=== PATIENT | male | born 1940 | race Caucasian/White ===

== ENCOUNTER 2016-03-23 22:19 | Observation (INO) | payer MEDICARE, OTHER ==
[~2016-03-23] VITALS: Ht 182.9 cm; Wt 82.0 kg
[~2016-03-23 22:19] MED LIST: CODCAP9 PO; LEVO100T4 PO; LOVA20TA PO; TAB-TAB PO
[2016-03-23 22:23] VITALS: BP 114/56; PULSE 82; RESP 16; O2SAT 93
[2016-03-23 22:29] VITALS: TEMP 97.8
[2016-03-23] MEDS ORDERED: NITROGLYCERIN 2% OINT 1 GM PACKET TOP ONE (22:30)
[2016-03-23] MEDS ORDERED: SODIUM CHLORIDE 0.9% FLUSH 5 ML FLUSH IVF PRN (22:30)
[2016-03-23] MEDS ORDERED: ASPIRIN 81 MG CHEW TAB PO ONE (22:30)
[2016-03-23] MEDS ORDERED: NITROGLYCERIN 0.4 MG SL 25 TABS/BTL SL ONE (22:30)
[2016-03-23] MEDS ORDERED: SODIUM CHLORID 0.9% 500 ML INJ 500 ML IV ONE (22:30)
[2016-03-23 22:38] VITALS: BP 176/82
[2016-03-23 22:42] LABS: AUTOMATED NEUTROPHIL # 10.2 TH/MM3 (1.8-7.7); BASOPHIL % 0.3 % (0.0-2.0); EOSINOPHIL # 0.2 TH/MM3 (0-0.4); EOSINOPHIL % 1.8 % (0.0-4.0); HEMATOCRIT 34.3 % (39.0-51.0); HEMO FLAGS DIFF FINAL; LYMPH % 7.4 % (9.0-44.0); LYMPHOCYTE # 0.9 TH/MM3 (1.0-4.8); MEAN CORPUSCULAR HEMOGLOBIN 30.2 PG (27.0-34.0); MEAN CORPUSCULAR HGB CONC 34.3 % (32.0-36.0); MONO % 5.9 % (0.0-8.0); NEUT % 84.6 % (16.0-70.0); PLATELET COUNT 202 TH/MM3 (150-450); RED CELL DISTRIBUTION WIDTH 12.3 % (11.6-17.2); WHITE BLOOD COUNT 12.1 TH/MM3 (4.0-11.0)
[2016-03-23 22:53] LABS: APTT (PATIENT) 25.6 SEC (24.3-30.1); PROTHROMBIN TIME - PATIENT 10.6 SEC (9.8-11.6)
--- NOTE | 2016-03-23 22:53 | RADRPT ---
EXAM DATE/TIME: 03/23/2016 22:49 [facility] COMPARISON: No previous studies available for comparison. INDICATIONS : Chest pain MEDICAL HISTORY : None. SURGICAL HISTORY : None. ENCOUNTER: Initial ACUITY: 1 day PAIN SCORE: 5/10 LOCATION: Bilateral chest FINDINGS: PA and lateral views of the chest demonstrate subsegmental basal air space disease. Heart size mildly enlarged. No significant effusion. No pneumothorax. No acute bony abnormality. CONCLUSION: 1. Subsegmental basilar airspace disease. Mild cardiomegaly. Shane Altamirano MD on March 23, 2016 at 22:50 Board Certified Radiologist. This report was verified electronically.
[2016-03-23 22:58] VITALS: PULSE 82
[2016-03-23 22:59] VITALS: BP 81/51; PULSE 84; RESP 16; O2SAT 93
[2016-03-23 23:10] VITALS: BP 85/50; PULSE 82; RESP 16; O2SAT 94
[2016-03-23 23:18] LABS: ALT (GPT) 22 U/L (12-78); ANION GAP 8 MEQ/L (5-15); AST (GOT) 20 U/L (15-37); BICARBONATE 28.5 MEQ/L (21.0-32.0); BLOOD UREA NITROGEN 18 MG/DL (7-18); CHLORIDE 104 MEQ/L (98-107); GLOMERULAR FILTRATION RATE 69 ML/MIN (>89); MAGNESIUM 1.8 MG/DL (1.5-2.5); POTASSIUM 3.4 MEQ/L (3.5-5.1); SODIUM (NA) 140 MEQ/L (136-145)
[2016-03-23 23:22] LABS: ALKALINE PHOSPHATASE 57 U/L (45-117); TOTAL BILIRUBIN ADULT 0.3 MG/DL (0.2-1.0)
--- NOTE | 2016-03-23 23:49 | PD ---
HPI Chief Complaint: Chest Pain Time Seen by Provider: 22:28 Travel History International Travel<30 days: No Contact w/Intl Traveler<30days: No Traveled to known affect area: No History of Present Illness HPI This is a 75-year-old man who presents to the emergency department complaining of left-sided chest tightness that started about 2 hours prior to arrival. He' s never really had it before. His a history of hyperlipidemia but no history of heart disease. He describes pretty significant discomfort coming on this evening. No shortness of breath but the pain is somewhat pleuritic. He's had about 2 months worth of runny nose and cough but no real recent exacerbations or other URI symptoms. No shortness of breath. No leg swelling. He otherwise been very healthy. He did an hour and a half of cardio at the gym today without any difficulty or discomfort. He states he has had symptoms of intermittent difficulty swallowing or feeling like food gets stuck in his throat if it's dry. He's never really had this evaluated. No other complaints. No previous workup for cardiac disease. History Past Medical History Narrative Medical Hyperlipidemia Social History Alcohol Use: Yes (2 VODKA DRINKS PER NIGHT ) Tobacco Use: No Allergies-Medications (Allergen,Severity, Reaction): Coded Allergies: Sulfa (Verified Allergy, Unknown, UNKNOWN, 03/23/16) Reported Meds & Prescriptions Reported Meds & Active Scripts Active Reported Cod Liver Oil 1000 mg (Cod Liver Oil) 1 Cap Cap 1 Cap PO DAILY Multivitamin (Multivitamins) 1 Tab Tab 1 Tab PO DAILY Levothyroxine Sodium (Generic) (Levothyroxine Sodium) 100 Mcg Tab 100 Mcg PO DAILY Lovastatin 20 Mg Tab 20 Mg PO HS Review of Systems Except as stated in HPI: all other systems reviewed are Neg Physical Exam Narrative GENERAL: Well-appearing 74-year-old man, no acute distress. SKIN: Warm and dry. HEAD: Atraumatic. Normocephalic. EYES: Pupils equal and round. No scleral icterus. No injection or drainage. ENT: No nasal bleeding or discharge. Mucous membranes pink and moist. NECK: Trachea midline. No JVD. CARDIOVASCULAR: Regular rate and rhythm. No murmur appreciated. RESPIRATORY: No accessory muscle use. Clear to auscultation. Breath sounds equal bilaterally. GASTROINTESTINAL: Abdomen soft, non-tender, nondistended. Hepatic and splenic margins not palpable. MUSCULOSKELETAL: No obvious deformities. No clubbing. No cyanosis. No edema. NEUROLOGICAL: Awake and alert. No obvious cranial nerve deficits. Motor grossly within normal limits. Normal speech. PSYCHIATRIC: Appropriate mood and affect; insight and judgment normal. Data Data Last Documented VS Vital Signs Date Time Temp Pulse Resp B/P Pulse Ox O2 Delivery O2 Flow Rate FiO2 03/23/16 23:10 82 16 85/50 94 Nasal Cannula 2 03/23/16 22:29 97.8 Orders Electrocardiogram (03/23/16 22:28) Complete Blood Count With Diff (03/23/16 22:28) Comprehensive Metabolic Panel (03/23/16 22:28) D-Dimer (03/23/16 22:28) Magnesium (Mg) (03/23/16 22:28) Prothrombin Time / Inr (Pt) (03/23/16 22:28) Act Partial Throm Time (Ptt) (03/23/16 22:28) Troponin I (03/23/16 22:28) Ecg Monitoring (03/23/16 22:28) Bilateral Bp Monitoring (03/23/16 22:28) Iv Access Insert/Monitor (03/23/16 22:28) Oximetry (03/23/16 22:28) Oxygen Administration (03/23/16 22:28) Aspirin Chew (Aspirin Chew) (03/23/16 22:30) Nitroglycerin 2% Oint (Nitroglycerin 2% (03/23/16 22:30) Sodium Chloride 0.9% Flush (Ns Flush) (03/23/16 22:30) Nitroglycerin Sl (Nitrostat Sl) (03/23/16 22:30) Sodium Chlorid 0.9% 500 Ml Inj (Ns 500 M (03/23/16 22:30) Chest, Pa & Lat (03/23/16 22:28) Lipase (03/23/16 23:31) Admit Order (Ed Use Only) (03/23/16 ) Labs Laboratory Tests Test 03/23/16 22:33 White Blood Count 12.1 TH/MM3 Red Blood Count 3.90 MIL/MM3 Hemoglobin 11.8 GM/DL Hematocrit 34.3 % Mean Corpuscular Volume 88.0 FL Mean Corpuscular Hemoglobin 30.2 PG Mean Corpuscular Hemoglobin 34.3 % Concent Red Cell Distribution Width 12.3 % Platelet Count 202 TH/MM3 Mean Platelet Volume 7.9 FL Neutrophils (%) (Auto) 84.6 % Lymphocytes (%) (Auto) 7.4 % Monocytes (%) (Auto) 5.9 % Eosinophils (%) (Auto) 1.8 % Basophils (%) (Auto) 0.3 % Neutrophils # (Auto) 10.2 TH/MM3 Lymphocytes # (Auto) 0.9 TH/MM3 Monocytes # (Auto) 0.7 TH/MM3 Eosinophils # (Auto) 0.2 TH/MM3 Basophils # (Auto) 0.0 TH/MM3 CBC Comment DIFF FINAL Differential Comment Prothrombin Time 10.6 SEC Prothromb Time International 1.0 RATIO Ratio Activated Partial 25.6 SEC Thromboplast Time D-Dimer Quantitative (PE/DVT) 0.46 MG/L FEU Sodium Level 140 MEQ/L Potassium Level 3.4 MEQ/L Chloride Level 104 MEQ/L Carbon Dioxide Level 28.5 MEQ/L Anion Gap 8 MEQ/L Blood Urea Nitrogen 18 MG/DL Creatinine 1.05 MG/DL Estimat Glomerular Filtration 69 ML/MIN Rate Random Glucose 121 MG/DL Calcium Level 8.3 MG/DL Magnesium Level 1.8 MG/DL Total Bilirubin 0.3 MG/DL Aspartate Amino Transf 20 U/L (AST/SGOT) Alanine Aminotransferase 22 U/L (ALT/SGPT) Alkaline Phosphatase 57 U/L Troponin I LESS THAN 0.02 NG/ML Total Protein 6.5 GM/DL Albumin 3.3 GM/DL [facility] Medical Decision Making Medical Screen Exam Complete: Yes Emergency Medical Condition: Yes Interpretation(s) My review of EKG: Normal sinus rhythm at a rate of 82, leftward axis, normal intervals, no definite evidence of acute ischemia. LABS: CBC remarkable for mild leukocytosis, mild anemia. CMP is unremarkable Troponin negative D-dimer 0.46 chest x-ray: Subsegmental basilar airspace disease. Mild cardiomegaly. Coags unremarkable Chest x-ray: Bibasilar airspace disease. Mild cardiomegaly. Differential Diagnosis Esophageal spasm, ACS, PE, pneumonia, other Narrative Course Medical decision making 75-year-old man, chest tightness starting abruptly this evening. He's had a two -month prodrome of some cough cold symptoms. There is no real other convincing evidence of pneumonia clinically. He does have some bibasilar airspace disease. He has a history of swallowing difficulties and I think the symptoms are likely related to esophageal spasm. EKG is nondiagnostic. No other prodrome for ACS. Labs lipase onto his initial labs, admission to the chest pain Center for serial cardiac enzymes and provocative testing, outpatient follow-up with GI if symptoms persist. Diagnosis Primary Impression: Chest pain Qualified Code: R07.9 - Chest pain, unspecified type Rashad Pierre MD Mar 23, 2016 23:49
[2016-03-24] VITALS (8 sets, daily range): BP systolic 108–154; BP diastolic 59–72; PULSE 80–88; RESP 15–19; TEMP 99.9–100; O2SAT 92–97
[2016-03-24] MEDS ORDERED: SODIUM CHLORIDE 0.9% FLUSH 5 ML FLUSH IVF PRN (00:45)
[2016-03-24] MEDS ORDERED: ACETAMINOPHEN/HYDROcodone 325 MG/5 MG TAB PO ONE (00:45)
[2016-03-24 02:05] LABS: CREATINE KINASE 166 U/L (39-308)
[2016-03-24 02:17] LABS: CKMB 2.3 NG/ML (0.5-3.6)
[2016-03-24 05:20] LABS: CREATINE KINASE 186 U/L (39-308)
[2016-03-24 05:32] LABS: CKMB 3.3 NG/ML (0.5-3.6)
[2016-03-24] MEDS ORDERED: LOVA20TA PO (07:37)
[2016-03-24] MEDS ORDERED: LEVO100T5 PO (07:37)
[2016-03-24] MEDS ORDERED: MULT-135 PO (07:37)
[2016-03-24] MEDS ORDERED: CODCAP (07:37)
[2016-03-24] MEDS ORDERED: ONDANSETRON HCL 4 MG/2 ML VIAL IV PRN (07:45)
[2016-03-24] MEDS ORDERED: ACETAMINOPHEN 500 MG CPLT PO PRN (07:45)
[2016-03-24] MEDS ORDERED: NITROGLYCERIN 0.4 MG SL 25 TABS/BTL SL PRN (07:45)
[2016-03-24] MEDS ORDERED: POTASSIUM CHLORIDE 20 MEQ CONTROLLED RELEASE TAB PO ONE (08:30)
[2016-03-24] MEDS ORDERED: KETOROLAC TROMETHAMINE 30 MG/ML (IVP) VIAL IV PUSH ONE (08:30)
[2016-03-24] MEDS ORDERED: POTASSIUM CL 40 MEQ/30 ML LIQ UDC PO ONE (08:45)
[2016-03-24] MEDS ORDERED: SODIUM CHLORIDE 0.9% FLUSH 5 ML FLUSH IVF SCH (09:00)
--- NOTE | 2016-03-24 10:04 | HHI.HP ---
HPI Primary Care Physician Koko Perry MD Chief Complaint Chest pain History of Present Illness This 75-year-old patient with known hypertension and hypothyroidism presents to the emergency room for further evaluation of substernal chest discomfort, onset 9 PM last evening. Characterized as a gradual pressure, with occasional sharp pains. Severity as 7 out of 10, duration has been constant, there was no radiation of his chest discomfort. Associated symptoms states he cannot take a deep breath,hurts to take a deep breath and also hurts with certain movements. No nausea, vomiting, diaphoresis, or shortness of breath. No known relieving factors. Received a pain pill in the emergency room that helped "slightly." Precipitating factors worked out at a gym Sunday lifting heavier weights than normal. Feels he pushed himself too much, wonders if this could have caused his discomfort. He routinely works out on a regular basis. Denies any epigastric burning, discomfort, or known acid reflux. Review of Systems General: No fatigue,weakness, fever, chills, or recent illness change in appetite, or recent travel HEENT: Past 2 months has had a runny nose and sneezing daily. Denies sore throat or having allergies. Believes he keeps a "cold" because he works out at the gym on a regular basis and they are "lots of germs there,." No MONK, no vision changes, no nasal congestion or drainage. Chronic dysphasia, follows with ENT, denies ever having esophageal stretching in fact states his ENT M.D. states he no longer needs to follow with him although patient follows with him yearly. Past right side focal nodule non-cancerous. CV: As stated above. Denies CP or pressure while working out at the gym 4 days a week. No palpitations, intermittent leg pain, or dizziness RESP: Hurts to take a deep breath therefore he states he has been taking shallow breaths. No SOB, cough, wheeze, hemoptysis GI: No nausea or vomiting, bowel changes, diarrhea, constipation, pain, distention, melena, blood in the stool. No change in appetite, no unintentional weight gain or weight loss : No dysuria, urgency, frequency EXT: No lower leg edema, no parathesias MS: Reports mild chest discomfort with movement from bed to standing position not necessarily twitching. Deep breaths make chest discomfort worse. Worked out Sunday with weights. Believes "I may have over done it." No change in ROM. No known trauma. 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, noncancerous Left ankle fracture as a child Reported Medications Reported Multi Vitamin (Multiple Vitamin) 1 Tab Tab 1 Tab PO DAILY Cod Liver Oil 1 Cap 1,250 Lovastatin 20 Mg Tab 20 Mg PO HS Levothyroxine (Levothyroxine Sodium) 100 Mcg Tab 100 Mcg PO DAILY Osteal porosis pill weekly, he is unsure of drug name Losartan (dose unknown) daily Vitamin B12 daily Calcium tablet BID (dose unknown) Active Ordered Medications Current Medications Medications (Trade) Dose Ordered Sig/Mj Route Start Time Stop Time Status Last Admin (Tylenol) 500 mg Q4H PRN PO 03/24/16 07:45 (Zofran Inj) 4 mg Q6H PRN IV 03/24/16 07:45 (Nitrostat Sl) 0.4 mg Q5M PRN SL 03/24/16 07:45 Family History Noncontributory for any early onset cardiovascular disease. Father at age 67 from coronary artery disease. Social History Has a remote smoking history smoked for 2 years only, quit 37 years ago. Endorses drinking 2 vodka drinks nightly denies any illegal drug use. No known hypertension or diabetes. Reports hyperlipidemia. He works out on the gym 4 days a week 2 days he uses elliptical for 45 minutes followed by 45 minutes on the treadmill at a pace of 3-1/2 miles per hour on an incline he does not develop chest discomfort with these exercises. Other 2 days a week he lifts weights. Reports having exercise stress test many years ago was unremarkable he does not follow with a beach expert. Physical Exam Vital Signs Vital Signs Date Time Temp Pulse Resp B/P Pulse Ox O2 Delivery O2 Flow Rate FiO2 03/24/16 09:20 87 03/24/16 08:53 93 Nasal Cannula 2.00 03/24/16 07:47 99.9 88 19 154/72 94 03/24/16 05:00 85 03/24/16 05:00 85 03/24/16 04:00 100.0 86 17 121/60 92 03/24/16 00:50 97 Nasal Cannula 1.00 03/24/16 00:35 88 16 126/68 96 Nasal Cannula 2 03/24/16 00:03 80 15 108/59 96 Nasal Cannula 2 03/23/16 23:10 82 16 85/50 94 Nasal Cannula 2 03/23/16 22:59 84 16 81/51 93 Nasal Cannula 2 03/23/16 22:58 82 03/23/16 22:29 97.8 03/23/16 22:23 82 16 114/56 93 Room Air Physical Exam GENERAL: Alert WN, WD, NAD, pleasant male HEAD: NC, AT EYES: Sclera clear, conjunctiva without injection, pupils equal and round ENT: Mucous membranes pink and moist, no nasal discharge or bleeding NECK: Supple, no masses, trachea midline CV: RRR, 2/6 systolic murmur, no rub, gallop, no JVD, S1-S2 no S3-S4. No carotid or femoral bruits. RESP: Clear lungs throughout bilateral, no crackles, wheeze, rhonchi. Symmetrical chest rise, nonlabored, able to speak in full sentences ABD: Soft, NT, ND, no masses, positive bowel tones BACK: No CVAT, no scoliosis EXT: Pulses +24, no dependent edema MS: Normal tone 4 extremities, slightly tender on the right chest wall with palpation. No obvious deformities, full range of motion NEURO: CN II through CN XII grossly intact, motor strength 5/5, gait WNL PSYCH: A+O 3, pleasant affect, appropriate speech, appropriate mood and affect , insight and judgment SKIN: Normal turgor, normal texture, no lesions, no rashes, brisk cap refill Laboratory Laboratory Tests Test 03/23/16 03/24/16 03/24/16 22:33 01:30 04:28 White Blood Count 12.1 Red Blood Count 3.90 Hemoglobin 11.8 Hematocrit 34.3 Mean Corpuscular Volume 88.0 Mean Corpuscular Hemoglobin 30.2 Mean Corpuscular Hemoglobin 34.3 Concent Red Cell Distribution Width 12.3 Platelet Count 202 Mean Platelet Volume 7.9 Neutrophils (%) (Auto) 84.6 Lymphocytes (%) (Auto) 7.4 Monocytes (%) (Auto) 5.9 Eosinophils (%) (Auto) 1.8 Basophils (%) (Auto) 0.3 Neutrophils # (Auto) 10.2 Lymphocytes # (Auto) 0.9 Monocytes # (Auto) 0.7 Eosinophils # (Auto) 0.2 Basophils # (Auto) 0.0 CBC Comment DIFF FINAL Differential Comment Prothrombin Time 10.6 Prothromb Time International 1.0 Ratio Activated Partial 25.6 Thromboplast Time D-Dimer Quantitative (PE/DVT) 0.46 Sodium Level 140 Potassium Level 3.4 Chloride Level 104 Carbon Dioxide Level 28.5 Anion Gap 8 Blood Urea Nitrogen 18 Creatinine 1.05 Estimat Glomerular Filtration 69 Rate Random Glucose 121 Calcium Level 8.3 Magnesium Level 1.8 Total Bilirubin 0.3 Aspartate Amino Transf 20 (AST/SGOT) Alanine Aminotransferase 22 (ALT/SGPT) Alkaline Phosphatase 57 Troponin I LESS THAN 0.02 LESS THAN 0.02 LESS THAN 0.02 Total Protein 6.5 Albumin 3.3 Lipase 194 Total Creatine Kinase 166 186 Creatine Kinase MB 2.3 3.3 Result Diagram: 03/23/16223203/23/162232 Imaging Last Impressions Chest X-Ray 03/23/162227 Signed Impressions: Service Date/Time: March 22:49 - CONCLUSION: 1. Subsegmental basilar airspace disease. Mild cardiomegaly. Shane Altamirano MD Course EKGsnormal sinus rhythm, left axis deviation, and incomplete right bundle branch block. Assessment and Plan Assessment and Plan #1 chest painpatient has been admitted to the chest pain center was ruled out with 3 sets of EKGs, 3 cardiac enzymes, and was monitored overnight. He'll be seen and evaluated by Dr. Chad Gutierres. Discussed the likelihood of having a exercise stress test however as his chest discomfort is more musculoskeletal beach expert will make determination. #2 Musculoskeletal painToradol 30 mg IV 1 dose. #3 Anemiapatient's encouraged to follow with his primary care provider as he is mildly anemic. #4 Dysphasia-chronic, stable. He has been encouraged to keep ENT appointment next week. #5 Mild Leukocytosisdiscussed with patient to follow-up with his primary care provider at this time there is no clear indication as to why he has leukocytosis. Patient has an appointment within the next couple of weeks with his primary care provider. Instructed to make sooner appointment as he has had a low-grade fever while in the hospital. He should verbalizes understanding. Guerline Wiseman Mar 24, 2016 10:04
[2016-03-24] MEDS ORDERED: LEVOTHYROXINE SODIUM 100 MCG TAB PO SCH (11:30)
--- NOTE | 2016-03-24 12:00 | HHI.DCPOC ---
Discharge Care Plan Diagnosis: (1) Musculoskeletal chest pain Goals to Promote Your Health * To prevent worsening of your condition and complications * To maintain your health at the optimal level Directions to Meet Your Goals Take your medications as prescribed Follow your dietary instruction Follow activity as directed Keep your appointments as scheduled Take your immunizations and boosters as scheduled If your symptoms worsen call your PCP, if no PCP go to Urgent Care Center or Emergency Room Smoking is Dangerous to Your Health. Avoid second hand smoke Call the 24-hour hour crisis hotline for domestic abuse at Guerline Wiseman Mar 24, 2016 12:00
--- NOTE | 2016-03-24 16:53 | EKG ---
Date Performed: 03/24/2016 Time Performed: 04:43:24 PTAGE: 75 years EKG: Sinus rhythm BORDERLINE LEFT AXIS DEVIATION INCOMPLETE RIGHT BUNDLE BRANCH BLOCK BORDERLINE ECG PREVIOUS TRACING : 03/24/2016 01.25 Since previous tracing, no significant change noted DOCTOR: Chad Gutierres Interpretating Date/Time 03/24/2016 16:52:29
--- NOTE | 2016-03-24 16:56 | EKG ---
Date Performed: 03/24/2016 Time Performed: 01:25:11 PTAGE: 75 years EKG: Sinus rhythm BORDERLINE LEFT AXIS DEVIATION MODERATE INTRAVENTRICULAR CONDUCTION DELAY BORDERLINE ECG PREVIOUS TRACING : 03/23/2016 22.29 Since previous tracing, no significant change noted DOCTOR: Chad Gutierres Interpretating Date/Time 03/24/2016 16:55:07
--- NOTE | 2016-03-24 16:58 | EKG ---
Date Performed: 03/23/2016 Time Performed: 22:29:55 PTAGE: 75 years EKG: Sinus rhythm BORDERLINE LEFT AXIS DEVIATION MODERATE INTRAVENTRICULAR CONDUCTION DELAY BORDERLINE ECG PREVIOUS TRACING : 07/22/2013 08.22 Since previous tracing, no significant change noted DOCTOR: Chad Gutierres Interpretating Date/Time 03/24/2016 16:57:14
[2016-03-25] MEDS ORDERED: MULTIVITAMIN TAB PO SCH (09:00)
== END 2016-03-24 14:59 | disposition home or self-care (01) ==
LOC: NEPC 22:19 → NEDA 23:34 → NEPHCDU 03-24 02:06
DX: R07.9 Chest pain, unspecified (principal); E78.5 Hyperlipidemia, unspecified; R05 Cough; R09.89 Other specified symptoms and signs involving the circulatory and respiratory systems; R13.10 Dysphagia, unspecified; Z79.899 Other long term (current) drug therapy; I11.9 Hypertensive heart disease without heart failure; E03.9 Hypothyroidism, unspecified; R47.02 Dysphasia; M79.1 Myalgia; D64.9 Anemia, unspecified; D72.829 Elevated white blood cell count, unspecified; I45.10 Unspecified right bundle-branch block
CPT/HCPCS: 71020; 80053; 82550; 82552; 83690; 83735; 84484; 85025; 85379; 85610; 85730; 93005; 96360; 99285; G0378; J1885; J7040

== ENCOUNTER 2016-11-12 14:11 | Emergency (ER) | payer OTHER ==
[~2016-11-12 14:11] MED LIST changes: +CODCAP; -CODCAP9 PO; -LEVO100T4 PO; +LEVO100T5 PO; +MULT-135 PO; -TAB-TAB PO
[2016-11-12 14:14] VITALS: BP 179/85; PULSE 92; RESP 16; TEMP 98.4; O2SAT 99
--- NOTE | 2016-11-12 15:55 | RADRPT ---
EXAM DATE/TIME: 11/12/2016 15:36 [facility] COMPARISON: No previous studies available for comparison. INDICATIONS : Difficulty swallowing. MEDICAL HISTORY : Carcinoma, esophageal. SURGICAL HISTORY : None. ENCOUNTER: Initial ACUITY: 1 day PAIN SCORE: 3/10 LOCATION: Esophagus. FINDINGS: Two view examination of the soft tissues of the neck demonstrates the hypopharyngeal airway to have a grossly normal configuration. The trachea is midline. No radiopaque foreign bodies are seen. CONCLUSION: Normal examination. Rashad Leon MD on November 12, 2016 at 15:53 Board Certified Radiologist. This report was verified electronically.
[2016-11-12] MEDS ORDERED: ALEN1TAB48 PO (16:14)
[2016-11-12] MEDS ORDERED: LOSA50TA PO (16:15)
[2016-11-12] MEDS ORDERED: LIDOCAINE VISCOUS 2% SOLN 15 ML UDC SWISH-SPIT STA (16:19)
[2016-11-12 16:22] LABS: BLOOD, URINE TRACE (NEG); GLUCOSE,URINE NEG (NEG); KETONE, URINE 10 mg/dL (NEG); MUCUS URINE FEW /lpf (OCC); NITRITE,URINE NEG (NEG); URINE COLOR YELLOW (YELLW/STRAW)
[2016-11-12 16:30] LABS: COMMENT (UR) CULT NOT INDICATED; CULTURE IF INDICATED CULT NOT INDICATED
[2016-11-12 16:33] LABS: AUTOMATED NEUTROPHIL # 6.9 TH/MM3 (1.8-7.7); BASOPHIL # 0.1 TH/MM3 (0-0.2); BASOPHIL % 0.6 % (0.0-2.0); EOSINOPHIL # 0.1 TH/MM3 (0-0.4); EOSINOPHIL % 1.6 % (0.0-4.0); HEMATOCRIT 41.5 % (39.0-51.0); HEMO FLAGS DIFF FINAL; LYMPH % 12.2 % (9.0-44.0); LYMPHOCYTE # 1.1 TH/MM3 (1.0-4.8); MEAN CORPUSCULAR HEMOGLOBIN 29.2 PG (27.0-34.0); MEAN CORPUSCULAR HGB CONC 34.4 % (32.0-36.0); MONO % 6.7 % (0.0-8.0); NEUT % 78.9 % (16.0-70.0); PLATELET COUNT 199 TH/MM3 (150-450); RED BLOOD COUNT 4.88 MIL/MM3 (4.50-5.90); RED CELL DISTRIBUTION WIDTH 15.8 % (11.6-17.2); WHITE BLOOD COUNT 8.7 TH/MM3 (4.0-11.0)
--- NOTE | 2016-11-12 16:37 | PD ---
HPI . Sensation of food lodged in throat Chief Complaint: ENT Complaint Time Seen by Provider: 16:35 Travel History International Travel<30 days: No Contact w/Intl Traveler<30days: No Traveled to known affect area: No History of Present Illness HPI 75-year-old male patient presents emergency department for evaluation of the sensation of food being lodged in his throat. Patient states he was eating chicken and dumplings last night when the sensation occurred. 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 He typically resolve the problem by drinking plenty of water however the problem is persistent this time. Patient states this happened a couple years ago and he came to the emergency department and was given a medication that relaxed his esophagus and the food passed. Patient states it's difficult to drink fluids or eat food with the sensation of esophageal blockage. Patient denies any chest pain, shortness breath, nausea, vomiting, diarrhea, abdominal pain, hematuria, dysuria, fevers, chills, malaise or lightheadedness. PFSH Past Medical History Arthritis: Yes Cancer: Yes (VOCAL CORD) Cardiovascular Problems: No Diabetes: No Diminished Hearing: No Endocrine: No Genitourinary: No Hepatitis: No Hiatal Hernia: No Hypertension: Yes Immune Disorder: No Musculoskeletal: Yes (ARTHRITIS) Neurologic: No Psychiatric: No Reproductive: No Respiratory: No Radiation Therapy: Yes (2010) Thyroid Disease: Yes Tetanus Vaccination: > 5 Years Influenza Vaccination: Yes Past Surgical History Abdominal Surgery: Yes (hernia repair) Joint Replacement: No Oral Surgery: Yes (VOCAL CORDS) Pacemaker: No Other Surgery: Yes (colonoscopy) Social History Alcohol Use: Yes (2 VODKA DRINKS PER NIGHT ) Tobacco Use: No Substance Use: No Allergies-Medications (Allergen,Severity, Reaction): Coded Allergies: Sulfa (Sulfonamide Antibiotics) (Unverified Allergy, Unknown, UNKNOWN, 11/12/16) Reported Meds & Prescriptions Reported Meds & Active Scripts Active Reported Losartan (Losartan Potassium) 50 Mg Tab 50 Mg PO DAILY Alendronate (Alendronate Sodium) 70 Mg Tab 70 Mg PO Q7D Lovastatin 20 Mg Tab 20 Mg PO HS Levothyroxine (Levothyroxine Sodium) 100 Mcg Tab 100 Mcg PO DAILY Review of Systems Except as stated in HPI: all other systems reviewed are Neg Physical Exam Narrative GENERAL: Well-nourished, well-developed 75-year-old male patient in no acute distress SKIN: Focused skin assessment warm/dry. HEAD: Normocephalic. Atraumatic. EYES: No scleral icterus. No injection or drainage. NECK: Supple, trachea midline. No JVD or lymphadenopathy. CARDIOVASCULAR: Regular rate and rhythm without murmurs, gallops, or rubs. RESPIRATORY: Breath sounds equal bilaterally. No accessory muscle use. GASTROINTESTINAL: Abdomen soft, non-tender, nondistended. MUSCULOSKELETAL: No cyanosis, or edema. BACK: Nontender without obvious deformity. No CVA tenderness. Data Data Last Documented VS Vital Signs Date Time Temp Pulse Resp B/P (MAP) Pulse Ox O2 Delivery O2 Flow Rate FiO2 11/12/16 14:14 98.4 92 16 179/85 (116) 99 Orders Orders Soft Tissue Neck (11/12/16 ) Complete Blood Count With Diff (11/12/16 15:05) Comprehensive Metabolic Panel (11/12/16 15:05) Urinalysis - C+S If Indicated (11/12/16 15:05) Lidocaine 2% Viscous (Xylocaine 2% Visco (11/12/16 16:19) Labs Laboratory Tests Test 11/12/16 15:15 11/12/16 16:20 Urine Color YELLOW Urine Turbidity CLEAR Urine pH 5.0 Urine Specific [place] 1.025 Urine Protein NEG mg/dL Urine Glucose (UA) NEG mg/dL Urine Ketones 10 mg/dL Urine Occult Blood TRACE Urine Nitrite NEG Urine Bilirubin NEG Urine Urobilinogen LESS THAN 2.0 MG/DL Urine Leukocyte Esterase NEG Urine RBC 1 /hpf Urine WBC LESS THAN 1 /hpf Urine Mucus FEW /lpf Microscopic Urinalysis Comment CULT NOT INDICATED White Blood Count 8.7 TH/MM3 Red Blood Count 4.88 MIL/MM3 Hemoglobin 14.3 GM/DL Hematocrit 41.5 % Mean Corpuscular Volume 85.0 FL Mean Corpuscular Hemoglobin 29.2 PG Mean Corpuscular Hemoglobin Concent 34.4 % Red Cell Distribution Width 15.8 % Platelet Count 199 TH/MM3 Mean Platelet Volume 8.3 FL Neutrophils (%) (Auto) 78.9 % Lymphocytes (%) (Auto) 12.2 % Monocytes (%) (Auto) 6.7 % Eosinophils (%) (Auto) 1.6 % Basophils (%) (Auto) 0.6 % Neutrophils # (Auto) 6.9 TH/MM3 Lymphocytes # (Auto) 1.1 TH/MM3 Monocytes # (Auto) 0.6 TH/MM3 Eosinophils # (Auto) 0.1 TH/MM3 Basophils # (Auto) 0.1 TH/MM3 CBC Comment DIFF FINAL Differential Comment Blood Urea Nitrogen 20 MG/DL Creatinine 0.85 MG/DL Random Glucose 83 MG/DL Total Protein 7.7 GM/DL Albumin 3.8 GM/DL Calcium Level 9.0 MG/DL Alkaline Phosphatase 57 U/L Aspartate Amino Transf (AST/SGOT) 20 U/L Alanine Aminotransferase (ALT/SGPT) 23 U/L Total Bilirubin 0.9 MG/DL Sodium Level 141 MEQ/L Potassium Level 3.9 MEQ/L Chloride Level 107 MEQ/L Carbon Dioxide Level 27.5 MEQ/L Anion Gap 7 MEQ/L Estimat Glomerular Filtration Rate 88 ML/MIN MDM Medical Decision Making Medical Screen Exam Complete: Yes Emergency Medical Condition: Yes Medical Record Reviewed: Yes Differential Diagnosis Differential diagnoses include but not limited to foreign body in esophagus, dysphagia, esophageal obstruction, food bolus blockage Narrative Course A soft tissue neck x-ray was obtained before the patient received a med bed. The x-ray showed a normal examination. Blood work had been sent prior to the patient receiving a med bed. CBC, CMP, UA pending. Patient case was discussed with my attending, Dr. Niño and due to the location in the esophagus of the sensation of food being lodged it would not be beneficial to give the patient any muscle relaxers, glucagon, calcium channel blockers. Patient will be given 15 mL lidocaine viscous to help numb the area of irritation and allow the food pass. Patient drinking a glass of water and attempt to dislodge the food. Patient was successfully dislodge the food. Based on patient's symptoms , clinical presentation, lab results, radiological results, vital sign review and physical exam it is not necessary to admit the patient to the hospital or keep the patient in the emergency department for further evaluation. Patient will be discharged home with prescription for lidocaine viscous and instructions to follow-up to follow-up with his primary care provider. Diagnosis Primary Impression: Esophageal obstruction due to food impaction Patient Instructions: Esophageal Foreign Body (ED), General Instructions Additional Instructions: Please return to emergency department if your symptoms return or worsen. Follow up with your primary care provider. Take medications as prescribed. Med/Other Pt SpecificInfo: Prescription(s) given Scripts Lidocaine Viscous Liq (Lidocaine Viscous Liq) 2 % Liqd 15 ML SWISH-SWAL DAILY Y for PAIN, #1 BOTTLE 0 Refills Prov: Roz Reyna 11/12/16 Disposition: 01 DISCHARGE HOME Condition: Stable Roz Reyna Nov 12, 2016 16:37
[2016-11-12 16:59] LABS: ALT (GPT) 23 U/L (12-78); ANION GAP 7 MEQ/L (5-15); AST (GOT) 20 U/L (15-37); BICARBONATE 27.5 MEQ/L (21.0-32.0); BLOOD UREA NITROGEN 20 MG/DL (7-18); CHLORIDE 107 MEQ/L (98-107); GLOMERULAR FILTRATION RATE 88 ML/MIN (>89); POTASSIUM 3.9 MEQ/L (3.5-5.1); SODIUM (NA) 141 MEQ/L (136-145)
[2016-11-12 17:02] LABS: ALKALINE PHOSPHATASE 57 U/L (45-117); TOTAL BILIRUBIN ADULT 0.9 MG/DL (0.2-1.0)
[2016-11-12] MEDS ORDERED: LIDO1SOL8 SWISH-SWAL (17:42)
[2016-11-12 17:45] VITALS: BP 139/71; PULSE 80; RESP 19; O2SAT 97
== END 2016-11-12 18:28 | disposition home or self-care (01) ==
LOC: NEPE 14:11
DX: T18.128A Food in esophagus causing other injury, initial encounter (principal); I10 Essential (primary) hypertension
CPT/HCPCS: 70360; 80053; 81001; 85025; 99284